=== PATIENT | male | born 1995 | race African-American/Black ===

== ENCOUNTER 2016-05-08 18:54 | Emergency (ER) | payer OTHER ==
[2016-05-08] MEDS ORDERED: ACETAMINOPH W/CODEINE #3 TAB UD As Ordered ONE (21:20)
--- NOTE | 2016-05-08 22:30 | REPUSA ---
Clinical statement: Trauma Technique: Contiguous noncontrast transaxial 2.[address] images were obtained through the cervical spin e. Reconstructions were then created in the axial plane at 1.25 mm from which reformations were gener ated in the coronal and sagittal planes to assess spinal alignment. Comparison: None Findings: No prevertebral soft tissue swelling is seen. The cervical alignment is maintained without spondyloli sthesis. No acute fracture is identified. The vertebral body and disk space heights are preserved. Th e odontoid process is intact. No fracture is identified. No disc herniations are seen. The foramina are preserved. There is no canal stenosis. Impression: No acute C-spine fracture.
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
--- NOTE | 2016-05-08 23:37 | EDDOCDS ---
Physician Documentation [facility] Name: Placido Castellanos Age: 21 yrs Sex: Male : 1995 Arrival Date: 05/08/2016 Time: 18:54 Bed PR Private MD: [facility] Disposition: 05/08/16 23:24 Discharged to Home/Self Care. Impression: Cervicalgia, Other sprain of right shoulder joint, Contusion of right knee. - Condition is Stable. - Discharge Instructions: Shoulder Pain, Knee Pain, Soft Tissue Injury of the Neck. - Prescriptions for Ibuprofen 600 mg Oral Tablet - take 1 tablet by ORAL route every 6 hours As needed take with food; 30 tablet. Robaxin 500 mg Oral Tablet - take 2 tablet by ORAL route every 6 hours As needed; 40 tablet. Tylenol- Codeine #3 300-30 mg Oral Tablet - take 2 tablets by ORAL route every 6 hours As needed MDD: 4 tabs; 20 tablet. - Medication Reconciliation, Local Pharmacy Hours form. - Follow up: [facility]; When: 2 - 3 days; Reason: Recheck today's complaints, Continuance of care. - Problem is new. - Symptoms have improved. - Notes: USE MEDICATIONS INSTRUTCED, FOLLOW UP WITH YOUR DOCTOR IN 2-3 DAYS, RETURN TO THE ER IF THE SYMPTOMS WORSEN OR BECOME CONCERNING Historical: - Allergies: No known drug Allergies; - Home Meds: 1. none - PMHx: low back pain; - PSHx: none; - Social history: Smoking status: Patient states was never smoker of tobacco. No barriers to communication noted, The patient speaks fluent Tuvaluan, Speaks appropriately for age. - Family history: Not pertinent. - : The pt / caregiver states he / she is not on anticoagulants. Home medication list is obtained from the patient. - Exposure Risk Screening:: None identified. Vital Signs: 05/08 18:57 BP 134 / 64; Pulse 63; Resp 18; Temp 97.5(O); Pulse Ox 100% ; Weight 88.45 kg / 195 cmb lbs; Height 5 ft. 11 in. (180.34 cm); Pain 8/10; 23:36 BP 132 / 67; Pulse 63; Resp 18; Temp 98.0(O); Pulse Ox 99% on R/A; af2 18:57 Body Mass Index 27.20 (88.45 kg, 180.34 cm) cmb MDM: 21:15 Acetaminophen-Codeine 300 mg-30 mg 2 tabs PO once ordered. ck7 21:15 Apply Gabriela Collar to Patient. ordered. ck7 21:16 CT Spine,Cervical W/o Contrast Ordered. EDMS 21:16 Shoulder, Complete Ordered. EDMS 21:16 Knee, Complete Ordered. EDMS 22:13 Financial registration complete. gjb 22:32 [facility] Payment Agreement was scanned into [employer] and attached to record. gjb 22:32 [facility] was scanned into [employer] and attached to record. gjb Administered Medications: 21:23 Drug: Acetaminophen-Codeine 2 tabs [acetaminophen 300 mg-codeine 30 mg tablet (2 tabs)] mb9 Route: PO; Signatures: Dispatcher [employer] EDMS Manjeet Morales RN RN cz Maxime Mckeon, ISRA-C RPA-Cck7 Edith Mary RN RN af2 Ama Briscoe b Manuel Coleman RN mb9 The chart was reviewed and I authenticate all verbal orders and agree with the evaluation and treatment provided.Attachments: 22:32 [facility] Payment Agreement gjb MTDD
--- NOTE | 2016-05-09 06:46 | REP ---
Clinical: Deformity and swelling . Technique: Internal rotation, external rotation, and Y view right shoulder . Findings: No acute fracture or dislocation. The acromioclavicular and glenohumeral joints are intact. No periarticular calcifications or degenerative changes are appreciated. Sub acromial space is normal. Surrounding soft tissues are unremarkable. Impression: Normal right shoulder radiographs. Signed by Rubén Augustine MD 05/09/2016 06:37 A
--- NOTE | 2016-05-09 07:04 | REP ---
Clinical: Trauma. Deformity and swelling. Technique: AP, lateral, bilateral oblique and sunrise views right knee. . Findings: The osseous structures and joint spaces are intact and normal. There is no evidence for acute fracture or dislocation. No joint effusion is appreciated. Surrounding soft tissues are unremarkable. No subcutaneous emphysema or radiodense foreign body. Impression: Normal examination. No acute fracture or dislocation. Signed by Rubén Augustine MD 05/09/2016 06:55 A
--- NOTE | 2016-05-11 00:37 | EDDOCDS ---
Physician Documentation [facility] Name: Placido Castellanos Age: 21 yrs Sex: Male : 1995 Arrival Date: 05/08/2016 Time: 18:54 Bed PR Private MD: [facility] Disposition: 05/08/16 23:24 Discharged to Home/Self Care. Impression: Cervicalgia, Other sprain of right shoulder joint, Contusion of right knee. - Condition is Stable. - Discharge Instructions: Shoulder Pain, Knee Pain, Soft Tissue Injury of the Neck. - Prescriptions for Ibuprofen 600 mg Oral Tablet - take 1 tablet by ORAL route every 6 hours As needed take with food; 30 tablet. Robaxin 500 mg Oral Tablet - take 2 tablet by ORAL route every 6 hours As needed; 40 tablet. Tylenol- Codeine #3 300-30 mg Oral Tablet - take 2 tablets by ORAL route every 6 hours As needed MDD: 4 tabs; 20 tablet. - Medication Reconciliation, Local Pharmacy Hours form. - Follow up: [facility]; When: 2 - 3 days; Reason: Recheck today's complaints, Continuance of care. - Problem is new. - Symptoms have improved. - Notes: USE MEDICATIONS INSTRUTCED, FOLLOW UP WITH YOUR DOCTOR IN 2-3 DAYS, RETURN TO THE ER IF THE SYMPTOMS WORSEN OR BECOME CONCERNING Historical: - Allergies: No known drug Allergies; - Home Meds: 1. none - PMHx: low back pain; - PSHx: none; - Social history: Smoking status: Patient states was never smoker of tobacco. No barriers to communication noted, The patient speaks fluent Indonesian, Speaks appropriately for age. - Family history: Not pertinent. - : The pt / caregiver states he / she is not on anticoagulants. Home medication list is obtained from the patient. - Exposure Risk Screening:: None identified. Vital Signs: 05/08 18:57 BP 134 / 64; Pulse 63; Resp 18; Temp 97.5(O); Pulse Ox 100% ; Weight 88.45 kg / 195 cmb lbs; Height 5 ft. 11 in. (180.34 cm); Pain 8/10; 23:36 BP 132 / 67; Pulse 63; Resp 18; Temp 98.0(O); Pulse Ox 99% on R/A; af2 18:57 Body Mass Index 27.20 (88.45 kg, 180.34 cm) b MDM: 21:15 Acetaminophen-Codeine 300 mg-30 mg 2 tabs PO once ordered. ck7 21:15 Apply Gabriela Collar to Patient. ordered. ck7 21:16 CT Spine,Cervical W/o Contrast Ordered. EDMS 21:16 Shoulder, Complete Ordered. EDMS 21:16 Knee, Complete Ordered. EDMS 22:13 Financial registration complete. [facility] : [facility] Payment Agreement was scanned into [employer] and attached to record. [facility] : [facility] was scanned into [employer] and attached to record. [facility] 05/09 10:52 T-Sheet-- Draft Copy was scanned into [employer] and attached to record. 13:46 PCR was scanned into [employer] and attached to record. gb Administered Medications: 05/08 21:23 Drug: Acetaminophen-Codeine 2 tabs [acetaminophen 300 mg-codeine 30 mg tablet (2 tabs)] mb9 Route: PO; Signatures: Dispatcher [employer] EDManjeet Michael, RN RN cz Rebecca English, Reg Reg gb Maxime Mckeon, RPA-C RPA-Cck7 Edith MaryRN RN af2 Ama Briscoe [facility] Manuel Coleman RN mb9 The chart was reviewed and I authenticate all verbal orders and agree with the evaluation and treatment provided.Attachments: :32 [facility] Payment Agreement [facility] 05/09 10:52 T-Sheet-- Draft Copy gb Chart Complete MTDD
--- NOTE | 2016-05-11 00:37 | EDDOCDS ---
Physician Documentation [facility] Name: Placido Castellanos Age: 21 yrs Sex: Male : 1995 Arrival Date: 05/08/2016 Time: 18:54 Bed PR Private MD: [facility] Disposition: 05/08/16 23:24 Discharged to Home/Self Care. Impression: Cervicalgia, Other sprain of right shoulder joint, Contusion of right knee. - Condition is Stable. - Discharge Instructions: Shoulder Pain, Knee Pain, Soft Tissue Injury of the Neck. - Prescriptions for Ibuprofen 600 mg Oral Tablet - take 1 tablet by ORAL route every 6 hours As needed take with food; 30 tablet. Robaxin 500 mg Oral Tablet - take 2 tablet by ORAL route every 6 hours As needed; 40 tablet. Tylenol- Codeine #3 300-30 mg Oral Tablet - take 2 tablets by ORAL route every 6 hours As needed MDD: 4 tabs; 20 tablet. - Medication Reconciliation, Local Pharmacy Hours form. - Follow up: [facility]; When: 2 - 3 days; Reason: Recheck today's complaints, Continuance of care. - Problem is new. - Symptoms have improved. - Notes: USE MEDICATIONS INSTRUTCED, FOLLOW UP WITH YOUR DOCTOR IN 2-3 DAYS, RETURN TO THE ER IF THE SYMPTOMS WORSEN OR BECOME CONCERNING Historical: - Allergies: No known drug Allergies; - Home Meds: 1. none - PMHx: low back pain; - PSHx: none; - Social history: Smoking status: Patient states was never smoker of tobacco. No barriers to communication noted, The patient speaks fluent French, Speaks appropriately for age. - Family history: Not pertinent. - : The pt / caregiver states he / she is not on anticoagulants. Home medication list is obtained from the patient. - Exposure Risk Screening:: None identified. Vital Signs: 05/08 18:57 BP 134 / 64; Pulse 63; Resp 18; Temp 97.5(O); Pulse Ox 100% ; Weight 88.45 kg / 195 cmb lbs; Height 5 ft. 11 in. (180.34 cm); Pain 8/10; 23:36 BP 132 / 67; Pulse 63; Resp 18; Temp 98.0(O); Pulse Ox 99% on R/A; af2 18:57 Body Mass Index 27.20 (88.45 kg, 180.34 cm) b MDM: 21:15 Acetaminophen-Codeine 300 mg-30 mg 2 tabs PO once ordered. ck7 21:15 Apply Gabriela Collar to Patient. ordered. ck7 21:16 CT Spine,Cervical W/o Contrast Ordered. EDMS 21:16 Shoulder, Complete Ordered. EDMS 21:16 Knee, Complete Ordered. EDMS 22:13 Financial registration complete. [facility] : [facility] Payment Agreement was scanned into [employer] and attached to record. [facility] : [facility] was scanned into [employer] and attached to record. banner 05/09 10:52 T-Sheet-- Draft Copy was scanned into [employer] and attached to record. 13:46 PCR was scanned into [employer] and attached to record. gb Administered Medications: 05/08 21:23 Drug: Acetaminophen-Codeine 2 tabs [acetaminophen 300 mg-codeine 30 mg tablet (2 tabs)] mb9 Route: PO; Signatures: Dispatcher [employer] EDManjeet Michael, RN RN cz Rebecca English, Reg Reg gb Maxime Mckeon, RPA-C RPA-Cck7 Edith MaryRN RN af2 Ama Briscoe banner Manuel Coleman RN mb9 The chart was reviewed and I authenticate all verbal orders and agree with the evaluation and treatment provided.Attachments: :32 [facility] Payment Agreement banner 05/09 10:52 T-Sheet-- Draft Copy gb Chart Complete MTDD
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
== END 2016-05-08 23:36 | disposition home or self-care (01) ==
LOC: M ED 18:54
DX: S43.401A Unspecified sprain of right shoulder joint, initial encounter (principal); S80.01XA Contusion of right knee, initial encounter; V49.49XA Driver injured in collision with other motor vehicles in traffic accident, initial encounter; Y92.410 Unspecified street and highway as the place of occurrence of the external cause; Y93.89 Activity, other specified; Y99.8 Other external cause status; M54.2 Cervicalgia; M54.5 Low back pain